=== PATIENT | female | born 1980 | race American Indian/Alaskan Native ===

== ENCOUNTER 2017-12-11 23:04 | Emergency (ER) | payer OTHER ==
[2017-12-11] MEDS ORDERED: ZOFRAN IV ONE (23:45)
[2017-12-11] MEDS ORDERED: DILAUDID IV ONE (23:45)
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
[2017-12-12 00:23] LABS: Basophils # (Auto) 0.1 K/mm3 (0.0-0.1); Basophils % (Auto) 0.6 % (0.0-1.8); Eosinophils # (Auto) 0.1 K/mm3 (0.0-0.4); Eosinophils % (Auto) 1.7 % (0.0-4.3); Hematocrit 38.1 % (30.3-42.9); Hemoglobin 11.7 gm/dl (10.1-14.3); Lymphocytes # (Auto) 1.6 K/mm3 (1.2-5.4); Mean Corpuscular HGB Conc 31 % (30-34); Mean Corpuscular Volume 80 fl (79-97); Monocytes # (Auto) 0.6 K/mm3 (0.0-0.8); Monocytes % (Auto) 6.5 % (0.0-7.3); Platelet Count 303 K/mm3 (140-440); Red Blood Count 4.74 M/mm3 (3.65-5.03); Red Cell Distribution Width 15.7 % (13.2-15.2)
[2017-12-12 00:25] LABS: Alanine Aminotransferase 17 units/L (7-56); Albumin 3.6 g/dL (3.9-5); BUN/Creatinine Ratio 17; Blood Urea Nitrogen 10 mg/dL (7-17); Calcium 8.7 mg/dL (8.4-10.2); Hemolysis Index 2
[2017-12-12 00:28] LABS: Mean Corpuscular Hemoglobin 25 pg (28-32)
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
[2017-12-12] MEDS ORDERED: DILAUDID IV ONE (01:24)
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
[2017-12-12] MEDS ORDERED: DILAUDID IV PRN (02:46)
[2017-12-12] MEDS ORDERED: SUBLIMAZE IV ONE (03:30)
[2017-12-12 04:08] VITALS: BP 145/85
[2017-12-12] MEDS ORDERED: ZOFRAN ONE (04:13)
[2017-12-12] MEDS ORDERED: ZOFRAN IV ONE (04:19)
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
== END 2017-12-12 04:20 | disposition other institution (70) ==
LOC: ED 23:04
DX: S16.1XXA Strain of muscle, fascia and tendon at neck level, initial encounter (principal); S09.90XA Unspecified injury of head, initial encounter; S30.1XXA Contusion of abdominal wall, initial encounter; G83.14 Monoplegia of lower limb affecting left nondominant side; M54.5 Low back pain; M54.6 Pain in thoracic spine; Z85.43 Personal history of malignant neoplasm of ovary; Z88.8 Allergy status to other drugs, medicaments and biological substances; Z91.018 Allergy to other foods; V89.2XXA Person injured in unspecified motor-vehicle accident, traffic, initial encounter; Y93.89 Activity, other specified; Y99.8 Other external cause status; Y92.410 Unspecified street and highway as the place of occurrence of the external cause
CPT/HCPCS: 36415; 70450; 72125; 72128; 72131; 73120; 73521; 74177; 80053; 84703; 85025; 96374; 96375; 96376; 99285; J1170; J2405; J3010; Q9967